=== PATIENT | female | born 1985 | race Caucasian/White ===

== ENCOUNTER 2023-10-01 15:31 | Emergency (ER) | payer OTHER, SELFPAY ==
[2023-10-01 15:33] VITALS: BP 114/71; PULSE 96; TEMP 36.7; O2SAT 100
[2023-10-01] MEDS: BENZOCAINE 30 ML, lidocaine HCL 15 ML MM (16:05)
[2023-10-01] MEDS: TRAMADOL HCL 50 MG TABLET PO (16:05)
[2023-10-01] MEDS: AMOXICILLIN/POTASSIUM CLAV 1 TAB TABLET PO (16:05)
--- NOTE | 2023-10-02 07:31 | ED_ITS ---
HPI - Dental/Oral General Chief complaint: Dental/Oral Stated complaint: TOOTH PAIN Time Seen by Provider: 10/01/23 15:53 Source: patient Mode of arrival: walk-in Limitations: no limitations History of Present Illness HPI Narrative: The patient presented to us with a dental pain that started after she almost 2 days ago was eating food and all of a sudden she felt that part of her tooth was broken, pain is in the left lower and upper dental side Related Data Home Medications ?Medication ?Instructions ?Recorded ?Confirmed fluoxetine 40 mg capsule 40 mg PO DAILY 10/01/23 10/01/23 lorazepam 0.5 mg tablet 0.5 mg PO Q12H 10/01/23 10/01/23 tizanidine 2 mg tablet 2 mg PO Q12H 10/01/23 10/01/23 topiramate 25 mg tablet 25 mg PO Q12H 10/01/23 10/01/23 Previous Rx's ?Medication ?Instructions ?Recorded amoxicillin 875 mg-potassium 1 tab PO Q12H #14 tabs 10/01/23 clavulanate 125 mg tablet diclofenac sodium 75 mg 75 mg PO BID PRN pain #14 tabs 10/01/23 tablet,delayed release Allergies Allergy/AdvReac Type Severity Reaction Status Date / Time TORADOL AdvReac Intermediate Agitated Uncoded 10/01/23 15:37 Review of Systems ROS Status of ROS 10 or more systems reviewed and unremark able except as noted in history and below Exam Narrative Exam Narrative: Dental examination showed that the patient have a very poor dental hygiene with multiple decayed tooth she is pointing to the area where the tooth #1213 and 14 were present but there is only remaining part of the tooth and there is tenderness upon palpation, otherwise the patient have a very poor dental hygiene Nurses notes and vital signs reviewed and patient is not hypoxic. General: Well-appearing and in no apparent distress. Skin: Warm, dry, no pallor noted. No rash. Head: Normocephalic, atraumatic. Neck: Supple, non-tender. Eye: Pupils are equal, round and EOMI. No scleral icterus. Ears, Nose, Mouth, and Throat: TM are clear, no nasal mucosal hypertrophy. Oral mucosa is moist, no posterior oropharynx erythema, uvula is mid-line Cardiovascular: Regular Rate and Rhythm without murmur, gallop or rub. Respiratory: No accessory muscle use or respiratory distress. Lungs are clear to auscultation, no wheezing, rales or rhonchi Chest Wall: no tenderness Back: No midline thoracic or lumbar vertebral tenderness. No CVA tenderness Musculoskeletal: normal ROM, no calf or popliteal tenderness, no lower extremity edema/swelling GI: Abdomen is soft, non-distended. Normal bowel sounds. No masses appreciated. No tenderness to palpation. No rebound, guarding, or rigidity noted. Neurological: A&O x4. No cranial nerve dysfunction observed. No truncal ataxia. Moves all extremities. Sensation intact. Psychiatric: Cooperative and interactive. Normal mood and affect. Constitutional Vital Signs, click to edit/add: Last Vital Signs Temp 98.1 F 10/01/23 15:33 Pulse 96 H 10/01/23 15:33 Resp 18 10/01/23 15:33 BP 114/71 10/01/23 15:33 Pulse Ox 100 10/01/23 15:33 O2 Del Method Room Air 10/01/23 15:33 Course Vital Signs Vital signs: Vital Signs Temperature 98.1 F 10/01/23 15:33 Pulse Rate 96 H 10/01/23 15:33 Respiratory Rate 18 10/01/23 15:33 Blood Pressure 114/71 10/01/23 15:33 Pulse Oximetry 100 10/01/23 15:33 Oxygen Delivery Method Room Air 10/01/23 15:33 Temperature 98.1 F 10/01/23 15:33 Pulse Rate 96 H 10/01/23 15:33 Respiratory Rate 18 10/01/23 15:33 Blood Pressure 114/71 10/01/23 15:33 Pulse Oximetry 100 10/01/23 15:33 Oxygen Delivery Method Room Air 10/01/23 15:33 MDM - Dental/Oral MDM Narrative Medical decision making narrative: The patient presenting with dental pain mostly secondary to dental infection and decay Right now the patient was started on Augmentin as well as local pain medication and NSAIDs She does have a history of being agitated with Toradol which is not an allergic reaction Right now she was discharged with NSAID home as well as Augmentin Patient referred to the dentist as outpatient The patient is to follow up with primary care physician in next 2-3 days or to return to the emergency department should any of the signs or symptoms worsen or new symptoms develop. The patient agrees with the following Diagnosis and Treatment plan and the patient will be discharged home. Discharge Plan Discharge Stand Alone Forms: Portal Instructions Chief Complaint: Dental/Oral Clinical Impression: Dental caries, Dental abscess Patient Disposition: Home, Self-Care Time of Disposition Decision: 15:54 Condition: Good Prescriptions / Home Meds: New amoxicillin-pot clavulanate 875-125 mg tablet 1 tab PO Q12H Qty: 14 0RF diclofenac sodium 75 mg tablet,delayed release (DR/EC) 75 mg PO BID PRN (Reason: pain) Qty: 14 0RF No Action topiramate 25 mg tablet 25 mg PO Q12H tizanidine 2 mg tablet 2 mg PO Q12H lorazepam 0.5 mg tablet 0.5 mg PO Q12H fluoxetine 40 mg capsule 40 mg PO DAILY Print Language: [place] Instructions: Dental Abscess (ED), Tooth Extraction (DC) Referrals: Physician,Non-Staff, MD [Primary Care Provider] - 1 week Discharge Date/Time: 10/01/23 16:10
== END 2023-10-01 16:10 | disposition home or self-care (01) ==
PROVIDERS: Emergency Provider Emergency Medicine
DX: K04.7 Periapical abscess without sinus (principal); K02.9 Dental caries, unspecified
CPT/HCPCS: 99283